=== PATIENT | female | born 1960 | race African-American/Black ===

== ENCOUNTER 2017-08-26 23:35 | Inpatient (IN) ==
[2017-08-27] MEDS ORDERED: NS 1,000 ML IV ONE (00:30)
[2017-08-27] MEDS ORDERED: CEFEPIME 1 GM in NS 100 ML IV ONE (00:30)
[2017-08-27] MEDS ORDERED: SALINE FLUSH 10ml SYRINGE IVF PRN (00:30)
[2017-08-27] MEDS ORDERED: VANCOMYCIN - PHARMACY CONSULT MC ONE ×2 (01:17→03:20)
--- NOTE | 2017-08-27 02:14 | Emergency Department Report ---
Skin/Abscess/FB HPI - General Chief complaint: Skin/Abscess/Foreign Body Stated complaint: Bleeding right breast Time Seen by Provider: 08/27/17 00:30 Source: patient, RN notes reviewed, old records reviewed Mode of arrival: ambulatory Limitations: no limitations - History of Present Illness HPI narrative: 57yo woman presents to the ER for a bleeding breast. Pt has comorbid breast cancer and an infected wound in her right breast. Pt is being treated by Dr. Robles with chemo (currently on 4th week of tx). Dr. Prajapati has been treating pts breast infection in conjunction with the wound care center; pt has had serial debridement of the infected tissue. Tonight, pt had bleeding from under her breast that she could not get to stop. Pt has never had bleeding from her breast like this before. MD complaint: other Onset (ago): hour(s) Location: chest (Right) Severity: mild Consistency: constant Relieving factors: none Exacerbating factors: palpation, movement Context: recent illness Associated symptoms: denies other symptoms Treatments prior to arrival: bandages - Related Data Home Medications Medication Instructions Recorded Confirmed Oxycodone/Acetaminophen 5/325 1 tab PO Q4H PRN 05/28/17 08/27/17 [Percocet 5/325] Sennosides [Senna Lax] 1 tab PO DAILY 05/29/17 08/27/17 Dexamethasone Po [Decadron] 4 mg PO QDRHS 08/27/17 08/27/17 Previous Rx's Medication Instructions Recorded Nystatin Oral Liq. [Mycostatin] 5 ml PO QID #200 ml 08/27/17 Allergies Allergy/AdvReac Type Severity Reaction Status Date / Time No Known Allergies Allergy Verified 08/27/17 00:13 Review of Systems All systems: reviewed and negative except as stated Integumentary: Reports: as per HPI, other (Bleeding from under right breast) PFSH Patient Stated Medical History Sleep Apnea No Anemia Yes: per h&p Chemotherapy Yes Other Yes: dvt RUE Dr. Wilkinson ok with pt being off blood thinners Fibroids Yes Post Menopausal Yes: LMP-age 52 Now No Other Reproductive Yes: dysfunctional uterine bleeding Clinic Medical History (This Medical Record has been edited. Action required.) No active medical problems (Chronic Medical) Surgical History: 1. section on 06/24/1990 at [facility] at [place], [place]. 2. Incisional biopsy of right breast and core needle biopsies of right breast on 05/21/[address] Prajapati at the [facility] office at [place], [place]. Pathology report diagnosis on the biopsies was invasive poorly differentiated malignant epithelial neoplasm compatible with ductal carcinoma of the breast. 3. Implantation of PowerPort vascular access device on 05/29/[address] Prajapati at [facility] at [place], [place]. 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 4. Biopsy of skin at left breast and core needle biopsies of left breast on 06/13/[address] Prajapati at [facility] office at [place], [place]. Pathology report showed a diagnosis of poorly differentiated carcinoma. 5. Ultrasound-guided core needle biopsy of lymph node at left axilla on 06/13/[address] Basil Richardson at [facility]. Pathology report diagnosis on tissue submitted from this procedure was metastatic poorly differentiated carcinoma in one lymph node. 6. Debridement of extensive necrotic tissue at right breast on 07/24/[address] Prajapati at [facility] at [place], [place]. One postoperative diagnosis was bilateral, triple negative, locally advanced, neglected/inflammatory breast cancer. Another postoperative diagnosis was extensive necrotic tissue at right breast. Family History: Family History (This Medical Record has been edited. Action required.) Father Heart failure - Social History Smoking status: Never smoker second hand exposure: No Substance use type: does not use Alcohol intake frequency: does not drink Current occupational status: other Does patient use chewing tobacco?: No Physical Exam - Limitations Limitations: no limitations - General General appearance: alert, in no apparent distress, obese - Normal Exams: Head:: Normocephalic without trauma Eyes:: Pupils are PERRLA w/ EOMI, No scleral icterus, irritation, or foreign bodies noted ENMT:: No facial trauma, nasal exudates, pharyngeal erythema, or exudates are noted Neck:: Full range of motion, without adenopathy Lymphatic:: No lymphadenopathy Musculoskeletal:: No tenderness, or deformity noted Neurological:: Patient is alert, and oriented Psychiatric:: Patient exhibits, appropriate attention - Skin Skin exam: Present: warm, dry. Absent: intact - Expanded Skin Exam 1 - 5x8cm defect; underlying subQ fat is green/yellow with fibrin; Wound is tunneling back towards chest wall at lateral edge. Some inferior tunneling towards breast crease. Venous oozing from an appx 3cm defect at inferior of breast. 2 - 3cm defect with surrounding venous oozing Course - Consultations Consultation #1: Nehemiah Telemed: Will place in hospital and consult Dr. Prajapati and Dr. Robles in the AM. Requests a call to Dr. Prajapati prior to leaving in the AM. Time: 02:27 Vital Signs Temperature 98.9 F 08/26/17 23:37 Pulse Rate 102 H 08/26/17 23:37 Respiratory Rate 18 08/26/17 23:37 Blood Pressure 106/98 H 08/26/17 23:37 Pulse Oximetry 97 08/26/17 23:37 Temperature 98.9 F 08/26/17 23:37 Pulse Rate 102 H 08/26/17 23:37 Respiratory Rate 18 08/26/17 23:37 Blood Pressure 106/98 H 08/26/17 23:37 Pulse Oximetry 97 08/26/17 23:37 Skin/Abscess/Foreign Body - MDM Narrative Medical decision making narrative: Pt with apparent worsening/tunneling of her known breast infection/wound. Bleeding appears to be coming from a new skin defect in the fold her right breast. Unclear why pt has been managed as she has to date - pt is not able to articulate MDM behind current treatment. Unclear how bad pts wound has been up to this point. In the absence of this information, and in light of her presenting PE, will admit for atbx coverage and re-eval by pts oncologist and surgeon in the AM. - Differential Diagnosis Likely: abscess of skin or subcutaneous tissue, cellulitis, eczema, impetigo, contact dermatitis - Medical Records Attestation: I reviewed the patient's medical records. - Lab Data Attestation: I reviewed the patient's lab results. Result diagrams: 08/27/17 11:54 08/27/17 05:37 Lab Results 08/27/17 08/27/17 Range/Units 00:25 00:25 WBC 6.0 (4.5-11.0) T/MM3 RBC 3.49 L (4.00-5.20) M/MM3 Hgb 10.3 L (12-16) GM/DL Hct 33.7 L (36-46) % MCV 96.6 (80-100) UM3 MCH 29.5 (26-34) UUG MCHC 30.6 L (31-37) GM/DL RDW Std Deviation 77.3 H (36.9-50.2) FL Plt Count 202 (130-400) T/MM3 MPV 10.2 (9.4-12.4) UM3 Immature Gran % (Auto) Not performed Neut % (Auto) Not performed Lymph % (Auto) Not performed [place] % (Auto) Not performed Eos % (Auto) Not performed Baso % (Auto) Not performed Neut # (Auto) Not performed Lymph # (Auto) Not performed [place] # (Auto) Not performed Eos # (Auto) Not performed Baso # (Auto) Not performed Abs Immat Gran (auto) Not performed Neutrophils % (Manual) 55.0 (33-66) % Band Neutrophils % 11.0 H (0-6) % Lymphocytes % (Manual) 21.0 L (23-45) % Monocytes % (Manual) 6.0 (0-9.0) % Eosinophils % (Manual) 7.0 H (0-4) % Neutrophils # (Manual) 3.3 (1.8-7.7) T/MM3 Band Neutrophils # 0.7 T/MM3 Lymphocytes # (Manual) 1.3 (1-4.8) T/MM3 Monocytes # (Manual) 0.4 (0-0.8) T/MM3 Eosinophils # (Manual) 0.4 (0-0.5) T/MM3 Poikilocytosis 1+ Anisocytosis 1+ Tear Drop Cells 1+ RBC Morph Comment Abnormal Turbidity < 20 (0-20) Sodium 144 (134-144) MEQ/L Potassium 3.7 (3.6-5) MEQ/L Chloride 105 (98-107) MEQ/L Carbon Dioxide 26 (22-30) MEQ/L Anion Gap 13 (5-15) meq/L BUN 8.0 (7-17) MG/DL Creatinine 0.5 L (0.7-1.2) mg/dL GFR Calculation 127 BUN/Creatinine Ratio 16 (6-26) RATIO Glucose 115 H (65-110) MG/DL Calculated Osmolality 276 (261-280) MOSM/KG Calcium 9.4 (8.4-10.2) MG/DL Icterus Index < 2 (0-7) Troponin I < 0.012 (0-0.12) ng/ml Lipase 104 (23-300) U/L Plasma Lactate 0.9 (0.6-2.2) MMOL/L Specimen Hemolysis < 15 (0-25) Disposition Clinical Impression: Breast wound Qualifiers: Encounter type: initial encounter Laterality: right Qualified Code(s): S21.001A - Unspecified open wound of right breast, initial encounter Breast cancer Qualifiers: Breast location: unspecified site of breast Estrogen receptor status: unspecified Patient sex: female Laterality: right Qualified Code(s): C50.911 - Malignant neoplasm of unspecified site of right female breast Disposition: 02 To [facility] Condition: Stable Time of Disposition: :29 - Seen By: physician
[2017-08-27] MEDS ORDERED: ONDANSETRON 4 MG/2 ML INJECTION IVP PRN (03:20)
[2017-08-27] MEDS ORDERED: MORPHINE SULFATE 4mg INJECTION IVP PRN (03:20)
[2017-08-27] MEDS ORDERED: ACETAMINOPHEN 325 MG TABLET PO PRN (03:20)
[2017-08-27] MEDS ORDERED: NS 1,000 ML IV SCH (03:20)
[2017-08-27] MEDS ORDERED: HYDROCODONE/APAP 5mg/325mg TABLET PO PRN (03:20)
[2017-08-27 03:23] VITALS: BMI 34.2
--- NOTE | 2017-08-27 03:39 | History & Physical Report ---
History of Present Illness Date: 08/27/17 Chief complaint: right breast bleeding HPI: This is a 57 y/o female who was diagnosed with breast cancer 05/19. The pateint is currently being cared for by Dr. Robles and Dr. Prajapati. The pateint recieves IV chemo every saturday (technicallydue today). The pateint has a chronic wound on her right breast. Dr. Prajapati and wound care team has been debrieding wound on right breast regularly. Patient is providing her own wound care at home. The goal is to complete consolidation chemo and then do surgery. At this time the patient was packing her wound and was doing some debriedment herself and it started bleeding. This is new. She presents to the ED with described venous oozing. Vitals were otherwise stable with normal lactic acid and typically expected labs. The patient will be started on vanco and cefepime (ED started). surgical cx placed for am. NPO in case of procedure. Review of Systems All systems PM: 10-point ROS was reviewed, no additional remarkable complaints except Past Medical History Medical History: Medical History (This Medical Record has been edited. Action required.) No active medical problems (Chronic) Medical History Updates: brest carcinoma right breast Surgical History: 1. section on 06/24/1990 at [facility] at [place], [place]. 2. Incisional biopsy of right breast and core needle biopsies of right breast on 05/21/[address] Prajapati at the [facility] office. at [place], [place]. Pathology report diagnosis on the biopsies was invasive poorly differentiated malignant epithelial neoplasm compatible with ductal carcinoma of the breast. 3. Implantation of PowerPort vascular access device on 05/29/[address] Prajapati at [facility] at [place], [place]. 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 4. Biopsy of skin at left breast and core needle biopsies of left breast on 06/13/[address] Prajapati at [facility] office at [place], [place]. Pathology report showed a diagnosis of poorly differentiated carcinoma. 5. Ultrasound-guided core needle biopsy of lymph node at left axilla on 06/13/[address] Basil Richardson at [facility]. Pathology report diagnosis on tissue submitted from this procedure was metastatic poorly differentiated carcinoma in one lymph node. 6. Debridement of extensive necrotic tissue at right breast on 07/24/[address] Prajapati at [facility] at [place], [place]. One postoperative diagnosis was bilateral, triple negative, locally advanced, neglected/inflammatory breast cancer. Another postoperative diagnosis was extensive necrotic tissue at right breast. Family History: Family History (This Medical Record has been edited. Action required.) Father Heart failure Family History Updates: mother with colon cancer Family History: As Above - Social History Smoking status: Never smoker Substance use type: does not use Alcohol intake frequency: does not drink Housing: house Household members: spouse Current occupational status: retired Does patient use chewing tobacco?: No Current residence: Apartment/Private Home Medications Home Medications Medication Instructions Recorded Confirmed Type Oxycodone/Acetaminophen 5/325 1 tab PO Q4H PRN 05/28/17 08/27/17 History [Percocet 5/325] Sennosides [Senna Lax] 1 tab PO DAILY 05/29/17 08/27/17 History Dexamethasone Po [Decadron] 4 mg PO QDRHS 08/27/17 08/27/17 History Nystatin Oral Liq. [Mycostatin] 5 ml PO QID #200 ml 08/27/17 Rx Allergies Allergy/AdvReac Type Severity Reaction Status Date / Time No Known Allergies Allergy Verified 08/27/17 00:13 Exam Vital Signs: Temperature 98.3 F 08/27/17 03:17 Pulse Rate 102 H 08/27/17 03:27 Respiratory Rate 18 08/27/17 03:27 Blood Pressure 165/88 H 08/27/17 03:17 Pulse Oximetry 98 08/27/17 03:27 Telemetry Rhythm: Sinus Rhythm Height/Weight/BMI: Height 1.68 m Weight 96.1 kg Body Mass Index 34.2 - Constitutional Present: mild distress, well nourished, well developed, obese, cooperative - Routine HEENT Exam Head: Present: normocephalic, atraumatic Eye: Present: EOMI ENT: Present: mucous membranes moist - Routine Neck Exam Present: supple, full ROM - Routine Chest/Breast/Axilla Exam Comments: please see ed note. I felt it wasn't necessary to repeat exam tonight. Surgery and wound are team to see as well. - Routine Respiratory Exam Present: CTA bilaterally - Routine Cardiovascular Exam Present: RRR, no murmur - Routine Abdominal Exam Present: soft, normoactive bowel sounds, non distended, non tender - Routine Extremities Exam Present: non tender, full ROM - Routine Back/Spine/Pelvis Exam Back/Spine: Present: full ROM - Routine Skin Exam Present: intact - Routine Neurological Exam Present: alert, oriented X3, normal tone, normal speech. Absent: motor deficit - Routine Psychiatric Exam Present: normal affect, normal thought process Results - Labs CBC & Chem 7: 08/27/17 11:54 08/27/17 05:37 Labs: reviewd above , will discuss pertinent findings below Assessment and Plan (1) Normocytic anemia Current visit: Yes Status: Acute (2) Breast wound Current visit: Yes Status: Acute (3) Breast cancer Current visit: Yes Status: Acute Assessment and Plan: 1. right breast wound acute POA: npo, vanoc, cefepime, surgical cx. (ED to call surgeron at end of his shift), related to tumor. 2. breast cancer acute POA: per oncologist. currently undergoing consolidaton therapy. goal is to complete chemo before surgery. the question will be if can wait with ongoing wound. defer to surgeon and oncologist 3. normocytic anemia chronic POA; due to tumor/chemo, no tx, repeat in am DVT Prophylaxis: SCD's, Lovenox GI Prophylaxis: Protonix Resuscitation Status: Full Code - Time spent with patient Time with patient PN: 30 minutes - Physician Narrative Physician: Chloé Lino MD Narrative: Date: 08/27/17 Time: 1320 Dr. Becerril's note reviewed. Mrs. Payne interviewed and examined. CC: Bleeding, right breast wound HPI: She is a 57-year-old female with diagnosis of triple negative breast cancer in May this year. She is receiving chemotherapy under the care of Dr. Robles and has required debridement of necrotic wound of the right breast and multiple occasions by Dr. Prajapati. She had extensive surgical debridement on 07/24 and had additional debridement in the office one week ago when Dr. Prajapati did describe the right breast having 75% of the breast covered by ulcerated/ necrotic tissue and only 25% covered by normal skin. Patient reports that since that debridement she has had no trouble whatsoever including no recurrent odor, drainage, or fever/chills. She felt so well that she increased activity yesterday and thinks she pulled something in the chest wall. Yesterday evening she noted bleeding from the wound in the right breast, she redressed the wound and applied an ice pack before presenting to the emergency room. By the time she arrived in the emergency room bleeding ceased. Due to new bleeding and presence of bands on differential it was elected to admit the patient overnight for reassessment and IV antibiotics. This morning patient reports that she's had no further trouble and feels fine. She's been afebrile since admission. PH/SH/FH: agree with that recorded above by Dr. Becerril. ROS: 10 point review as recorded by Dr. Becerril with addition of decreased taste recently. EXAM: General-NAD, alert, cooperative; 98.4, 99, 16, 144/71, 97% room air HEENT-PERRL, EOMI without nystagmus, conjunctiva clear, sclera anicteric, conjugate gaze, facial structures symmetric, oropharynx clear, white coating on tongue, neck supple and without adenopathy Lungs-respirations nonlabored, good airflow, breath sounds clear Cardiac-regular rhythm, S1-S2 Abd-soft, nontender, without palpable mass Ext-without edema Skin-right breast with extensive ulceration laterally and inferiorly, one deep area laterally has some slough but no grossly necrotic tissue and no purulent drainage present Neuro-cranial nerves 3-12 intact, normal motor tone/power, sensation intact 4 extremities Psych-pleasant, calm, cooperative DATA: Hemoglobin 10.3-9.3-9.5; WBC this morning 4.4 with 5% bands. Chemistries unremarkable; lactic acid 0.9-undetectable A/P: Ulcerating breast cancer Localized bleeding, right breast wound-controlled Normocytic anemia Thrush No indication of active infection by my review. Laboratory data suggest patient has low count immature white cells chronically in response to chemotherapy and bone marrow stimulants she receives. She feels well and has been afebrile; there is no drainage from the wound and overall the wound appears good other there is minor slough in the deep portion which will require bedside or office debridement. Dr. Prajapati examined the patient and will have her follow-up in his office later this week for reassessment. Case discussed with Dr. Robles who is coordinated patient's chemotherapy for this afternoon in the office. Antibiotics/fluids discontinued. Nystatin suspension initiated for thrush. There is been no recurrent bleeding since presentation in the emergency room and hemoglobin is stable. Stable for discharge to permit continuation of chemotherapy. Hospital Course Summary Disclaimer: The visit summary below is not to be considered part of the above Progress Note.
[2017-08-27] MEDS: CEFEPIME 1 GM in NS 100 ML IV SCH ×2 (04:02→08:24)
[2017-08-27 07:20] VITALS: BP 144/71; PULSE 99; RESP 16; TEMP 98.4; O2SAT 97
[2017-08-27] MEDS ORDERED: POLYETHYL GLYCOL 3350 17gm PACKET PO SCH (09:00)
--- NOTE | 2017-08-27 11:19 | Pharmacy Consult-Antibiotics ---
Pharmacy Consult-Vancomycin - Laboratory Information WBC 4.4 T/MM3 (4.5-11.0) L 08/27/17 05:37 BUN 6.0 MG/DL (7-17) L 08/27/17 05:37 Creatinine 0.4 mg/dL (0.7-1.2) L 08/27/17 05:37 - Consult Information We will give vancomycin 1.5gm ivpb q8h after a 2 gram ivpb loading dose at 0130 on 08/27. Next dose scheduled for 1200 today. Thanks
[2017-08-27] MEDS ORDERED: SILVER NITRATE APPLICATOR TOP ONE (12:52)
[2017-08-27] MEDS ORDERED: NYSTATIN 500,000 units/5 ml ORAL LIQUID PO SCH (13:00)
--- NOTE | 2017-08-27 13:41 | Discharge Summary ---
Discharge Summary- Blank Discharge Summary: Cristina was hospitalized after patient to the emergency room with bleeding from an ulcerated wound in the right breast associated with known triple negative breast cancer. Wound was treated by Dr. Prajapati last week and she has done well since that time without drainage, fever, or chills. Bleeding was controlled with dressing and ice pack by the time she arrived in the emergency room and hemoglobin was stable overnight. The patient was started on antibiotics empirically and monitored in the hospital. She was seen by Dr. Prajapati on 08/27 but he did not feel that urgent surgical intervention was needed and recommended continued weekly follow-up in his office to monitor wound progress. Thrush was incidentally noted and nystatin suspension initiated. Patient was stable for discharge to permit continuation of chemotherapy scheduled for 08/27 and will leave the hospital reporting directly to Dr. Robles's office for today' s therapy. Diagnoses: Ulcerating breast cancer Localized bleeding, right breast wound-controlled Normocytic anemia Thrush Discharge medications-as per admission medications with addition of nystatin suspension 4 times a day [id number]. Elamin this afternoon, Dr. Prajapati later this week. Diet-regular, activity as tolerates
--- NOTE | 2017-08-27 18:31 | Consultation ---
DATE OF CONSULTATION 08/27/2017 HISTORY OF PRESENT ILLNESS This patient is 57 years old. This patient is known to have bilateral, triple negative, locally advanced, neglected/inflammatory breast cancer. She did have right breast cancer diagnosed by Dr. Prajapati in May 2017. She had left breast cancer diagnosed by Dr. Prajapati in May 2017. The patient is receiving chemotherapy from Dr. Robles. She has been recently receiving chemotherapy on a weekly basis on Tuesdays. The patient did undergo debridement of extensive necrotic tissue at the right breast on 07/24/[address] Prajapati at [facility] at [place], [place]. The patient did undergo additional extensive debridement of necrotic tissue at about 75% of the outer surface of the remaining right breast at the office on . The patient does perform all of her dressing changes at home. She keeps antibiotic ointment over all the open areas at the right breast to keep the dressings from sticking to the right breast. She performs dressing changes at home about three times a day. The patient was feeling well over the last few days. She was a little more active than usual on 08/26/2017. She did develop a little bit of bleeding from the right breast on 08/26/2017. She did come to [facility] Emergency Room for evaluation of this bleeding. This was just some venous oozing. The bleeding stopped spontaneously at about the time the patient arrived at the emergency room. While the patient was undergoing evaluation at [facility] at around midnight on 08/26/2017, it was noted that the patient did have some bandemia. CBC was performed at 0025 hours on 08/27/2017. White blood cell count was 6000 but the patient did have 11 bands. The patient was therefore admitted to [facility] from the emergency room to the hospitalist service early on the morning of 08/27/2017. The patient was started on antibiotic treatment with vancomycin and cefepime. The patient was kept n.p.o. in case any further debridement of the right breast was needed on 08/27/2017. The patient is due for a chemotherapy treatment at the office of Dr. Robles on the afternoon of . The patient has been evaluated by Dr. Lino from the hospitalist service and it is thought that it might be safe to dismiss the patient from the hospital at this time so that the patient can receive her chemotherapy at the appointment with Dr. Robles today. CBC was repeated at 0537 hours on 2017 and there were only 5 bands at that time. White blood cell count was 4400. The patient has had some pancytopenia in response to the chemotherapy. PHYSICAL EXAMINATION BREASTS: I did examine the right breast wound today. The patient does have some necrotic breast tissue at the lateral aspect of the right breast. There is no sign of any active infection at the right breast. The amount of necrotic tissue which remains at this time at the lateral aspect of the right breast is much less than there was prior to debridement on 08/21/2017. IMPRESSION 1. Bilateral, triple negative, locally advanced, neglected/inflammatory breast cancer. 2. Status post debridement of extensive necrotic tissue at right breast on . 3. Status post debridement of additional extensive necrotic tissue at right breast on 08/21/2017. 4. Small amount of remaining necrotic tissue at lateral aspect of right breast. 5. Episode of venous oozing from open area at right breast on 08/26/2017 which has resolved spontaneously. 6. Bandemia noted at CBC performed early on the morning of 08/27/2017 which is less at repeat CBC. RECOMMENDATION I do think that it is safe for the patient to be dismissed from [facility] at this time so that she can make it to her appointment with Dr. Robles on the afternoon of 08/27/2017 to receive the dose of chemotherapy which she is scheduled to receive at that time. I can see the patient later in the week and debride the small amount of necrotic tissue at the lateral aspect of the right breast under local anesthesia at the office at that time. I think that it is important that the patient not miss her dose of chemotherapy. The patient can continue the dressing changes which she performs herself at home. I did tell the patient to contact me if she has any further problems at the wound at the right breast. MELD
== END 2017-08-27 14:00 | disposition home or self-care (01) | DRG 605 ==
LOC: ED 23:35 → EDHOLD 23:35 → SUATTDRO 08-27 02:29 → MED 08-27 03:00
PROVIDERS: ADMIT Emergency Medicine; ATTEND Internal Medicine